=== PATIENT | female | born 1995 | race African-American/Black ===

== ENCOUNTER 2018-02-10 13:42 | Emergency (ER) | payer MEDICAID ==
[~2018-02-10] VITALS: Ht 175.3 cm; Wt 135.0 kg
[2018-02-10] MEDS ORDERED: IBUPROFEN 800MG TABLET PO ONE (16:45)
[2018-02-10 19:50] VITALS: BP 116/68
== END 2018-02-10 20:05 | disposition home or self-care (01) ==
LOC: ER 13:42
DX: S39.011A Strain of muscle, fascia and tendon of abdomen, initial encounter (principal); R10.31 Right lower quadrant pain; F32.9 Major depressive disorder, single episode, unspecified; F41.9 Anxiety disorder, unspecified; X58.XXXA Exposure to other specified factors, initial encounter; Y93.9 Activity, unspecified; Y92.9 Unspecified place or not applicable
CPT/HCPCS: 73502; 99284